=== PATIENT | female | born 2000 | race Caucasian/White ===

== ENCOUNTER 2024-12-01 23:17 | Emergency (ER) | payer BC, SELFPAY ==
[2024-12-01 23:33] VITALS: BP 142/88; O2SAT 99
[2024-12-01 23:40] VITALS: O2SAT 98
[2024-12-01 23:43] VITALS: BP 142/88; PULSE 86; TEMP 37; O2SAT 99; BMI 34.5
[2024-12-01 23:50] VITALS: O2SAT 98
--- NOTE | 2024-12-01 23:50 | PC.NURSE ---
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 after surgery of her left kidney the surgeon place her left kidney in the pelvic area near her bladder. this patient called her form maker at the [facility] , that person told her to go the er dept and have a ultra sound or ct of the new placement of her pelvic area
[2024-12-02] VITALS (26 sets, daily range): BP systolic 104–127; BP diastolic 62–87; PULSE 75; TEMP 37.1; O2SAT 95–100
--- NOTE | 2024-12-02 00:32 | ED.ABDPAIN1 ---
HPI - Abdominal Pain General Chief Complaint: Abdominal Pain Stated Complaint: POST TRANSPLANT COMPLICATIONS Time Seen by Provider: 12/01/24 23:23 Source: patient Mode of arrival: Wheelchair Limitations: no limitations History of Present Illness HPI narrative: This 24-year-old female who is status post transposition of the left kidney into her left lower quadrant and ureteral stent placement 5 weeks ago at [facility] presents for evaluation of left lower quadrant abdominal pain over the area where her kidney was relocated to. 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 The patient states she was having left flank pain for the past 20 years. She had this surgery 5 weeks ago at [facility]. A stent was placed postoperatively and was recently removed. She has followed up with her associate director of sales and is no longer on antibiotics. She states she started having pain in the left lower quadrant yesterday with nausea and vomiting. She has not had any diarrhea. She states her last bowel movement was 2 hours prior to coming to the emergency department. She has not had any fever. She has no flank pain at this time. She states she was doing fine until yesterday. She did reach out to the urologic surgeon who did her procedure and was told to go to a local hospital for an ultrasound of the kidney or CT scan. He is not currently on any pain medication or antibiotics. She states she has been urinating normally. Related Data Home Medications ?Medication ?Instructions ?Recorded ?Confirmed No Known Home Medications 12/01/24 12/01/24 Allergies Allergy/AdvReac Type Severity Reaction Status Date / Time No Known Drug Allergies Allergy Verified 12/01/24 23:42 Review of Systems ROS Status of ROS 10 or more systems reviewed and unremarkable except as noted in history and below PFSH PFSH Social History Little interest or pleasure in doing things: not at all Feeling down, depressed, or hopeless: not at all Exam Narrative Exam Narrative: Vital signs and Nursing Notes reviewed: Patient is afebrile with a normal pulse, blood pressure is elevated at 142/88, she has not hypoxic with pulse ox of 99% on room air General: Awake, alert, oriented, no acute distress, lying comfortably on the stretcher HEENT: Normocephalic atraumatic, mucous membranes are moist and pink, eyes are clear, normal conjunctiva, vision is grossly intact Chest: Lungs are clear to auscultation with good air entry, there is no wheezing rhonchi or rales appreciated no accessory muscle use, patient is speaking in complete sentences-no chest wall tenderness to palpation CVS: Regular rate and rhythm S1-S2, no murmurs rubs or gallops, pulses are brisk and equal bilaterally ABD: Soft, nondistended, healed periumbilical incision, mild tenderness in the left lower quadrant with voluntary guarding. Bowel sounds are normal. No right lower quadrant tenderness appreciated. Extremities: Moving all extremities, no lower extremity tenderness or swelling noted, negative Homans' sign, pulses are brisk and equal bilaterally Skin: Normal in appearance without rash,pallor, petechiae or purpura Neuro: No focal deficits Constitutional Vital Signs, click to edit/add: Last Vital Signs Temp 98.6 F 12/01/24 23:43 Pulse 86 12/01/24 23:43 Resp 18 12/01/24 23:43 BP 116/77 12/02/24 00:00 Pulse Ox 99 12/02/24 00:50 O2 Del Method Room Air 12/01/24 23:43 Course Vital Signs Vital signs: Vital Signs Blood Pressure 142/88 H 12/01/24 23:33 Pulse Oximetry 99 12/01/24 23:33 Temperature 98.6 F 12/01/24 23:43 Pulse Rate 86 12/01/24 23:43 Respiratory Rate 18 12/01/24 23:43 Blood Pressure 116/77 12/02/24 00:00 Pulse Oximetry 99 12/02/24 00:50 Oxygen Delivery Method Room Air 12/01/24 23:43 MDM - Abdominal Pain MDM Narrative Medical decision making narrative: This 24-year-old female who had a 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 She has not had any diarrhea. She has not had any fever. After the procedure she had a ureteral stent that was also recently removed. She denies any hematuria or urinary symptoms. She does not have any flank pain. She states she was feeling fine until yesterday when she started having pain in her left lower quadrant. She is well-appearing with stable vital signs. An IV was placed and she was medicated with IV fluids, Zofran and 4 mg of morphine. Routine labs were ordered and are reviewed. Her urine is negative for infection, protein or other abnormalities. She has a normal white count and stable hemoglobin. Electrolytes, liver function test and BUN and creatinine are normal. Lactic acid was normal at 0.9. He was told to come to the emergency department by the urologic surgeon who did her procedure for an ultrasound or CT scan of the kidney. Ultrasound is not available at this time and a CT scan with contrast was ordered. After the CT contrast had been administered by the occupational therapy technician the patient became nauseated and vomited. She was given additional dose of Zofran and the CT scan was completed. CT scan shows normal heart size with a small sized hiatal hernia, no acute process seen in the liver spleen gallbladder pancreas adrenal glands or kidneys. The left [place] kidney is situated in the left pelvis. There is normal perfusion to the kidneys with no focal perfusion abnormality identified. Constipation is noted affecting the right colon and proximal transverse colon segments. Patent abdominal aorta with no features of aneurysm or dissection. No retroperitoneal hemorrhage. No free fluid or free air. No abscess or hematoma. The results of the CT scan were shared with the patient and she was given a copy. She was also given a disc that shared with her urologist. She had recurrent pain while in the emergency department and was given a dose or Percocet which she had tolerated well hospitalized. She was given a copy of her labs and is going to call her surgeon later today to get a close follow-up appointment. I will give her a short course of pain medication to use until she can be seen in follow-up. At this time she is stable for discharge. OARRS was reviewed and she received 9 percocet post operatively She is on colace currently Lab Data Labs: Lab Results 12/02/24 12/02/24 Range/Units 00:45 00:50 WBC 8.4 (4.0-11.0) 10^3/uL RBC 4.59 (4.20-5.40) 10^6/uL Hgb 13.9 (12.0-16.0) g/dL Hct 40.2 (36.0-48.0) % MCV 87.6 (81.0-99.0) fL MCH 30.3 (26.7-34.0) pg MCHC 34.6 (29.9-35.2) g/dL RDW 11.9 (11.0-15.0) % Plt Count 193 (150-450) 10^3/uL MPV 10.0 (9.5-13.5) fL Neut % (Auto) 54.8 (43.0-75.0) % Lymph % (Auto) 32.5 (20.5-60.0) % [place] % (Auto) 9.6 (1.7-12.0) % Eos % (Auto) 2.3 (0.9-7.0) % Baso % (Auto) 0.4 (0.2-2.0) % Neut # (Auto) 4.6 (1.4-6.5) 10^3/uL Lymph # (Auto) 2.7 (1.2-3.8) 10^3/uL [place] # (Auto) 0.8 (0.3-0.8) 10^3/uL Eos # (Auto) 0.2 (0.0-0.7) 10^3/uL Baso # (Auto) 0.0 (0.0-0.1) 10^3/uL Abs Immat Gran (auto) 0.03 (0.00-0.03) 10^3/uL Imm/Tot Granulo (auto) 0.4 (0.0-0.5) % Sodium 139 (136-145) mmol/L Potassium 4.0 (3.5-5.1) mmol/L Chloride 103 (98-107) mmol/L Carbon Dioxide 29.3 (21.0-32.0) mmol/L Anion Gap 10.7 BUN 18.0 (7.0-18.0) mg/dL Creatinine 0.75 (0.55-1.02) mg/dL Est GFR ( Amer) >60 (>=60 mL/min/1.73m^2) Est GFR (Non-Af Amer) >60 (>=60 mL/min/1.73m^2) BUN/Creatinine Ratio 24.0 Glucose 82 (74-106) mg/dL Lactate 0.9 (0.4-2.0) mmol/L Calcium 9.8 (8.5-10.1) mg/dL Total Bilirubin 0.3 (0.2-1.0) mg/dL AST 17 (15-37) U/L ALT 35 (14-59) U/L Alkaline Phosphatase 121 H (46-116) U/L Total Protein 6.9 (6.4-8.2) g/dL Albumin 3.5 (3.4-5.0) g/dL Globulin 3.4 g/dL Albumin/Globulin Ratio 1.0 Urine Color Lt. yellow (YELLOW) Urine Clarity Clear (CLEAR) Urine pH 6.5 (5.0-9.0) Ur Specific [place] 1.010 (1.005-1.025) Urine Protein Negative (NEG/TRACE) mg/dL Urine Glucose (UA) Negative (NEGATIVE) mg/dL Urine Ketones Negative (NEGATIVE) mg/dL Urine Occult Blood Trace-i (NEGATIVE) Urine Nitrite Negative (NEGATIVE) Urine Bilirubin Negative (NEGATIVE) Urine Urobilinogen 0.2 (0.2-1.0) EU/dL Ur Leukocyte Esterase Negative (NEGATIVE) Urine RBC 0-2 (0-2) #/HPF Urine WBC 0-2 A (NONE SEEN) #/HPF Ur Squamous Epith Cells Moderate A (NONE/RARE) #/LPF Urine Crystals None seen (None Seen) #/HPF Urine Bacteria Trace A (NONE SEEN) #/HPF Urine Casts None seen (NONE SEEN) #/LPF Urine Mucus None seen (NONE SEEN) Ur Culture Indicated? No Urine HCG, Qual Negative (NEGATIVE) Discharge Plan Discharge Chief Complaint: Abdominal Pain Clinical Impression: Postoperative abdominal pain, Constipation Patient Disposition: Home, Self-Care Time of Disposition Decision: 04:17 Condition: Good Prescriptions / Home Meds: No Action No Known Home Medications Print Language: Andorran Instructions: Constipation (ED), Pain Management After Surgery (DC) Referrals: Physician,Non-Staff, MD [Primary Care Provider] - 1 week
[2024-12-02 00:58] LABS: Basophils Percent Auto 0.4 % (0.2-2.0); Eosinophils Absolute Auto 0.2 10^3/uL (0.0-0.7); Eosinophils Percent Auto 2.3 % (0.9-7.0); Hematocrit 40.2 % (36.0-48.0); Hemoglobin 13.9 g/dL (12.0-16.0); Immature Granulocytes Abs Auto 0.03 10^3/uL (0.00-0.03); Immature Granulocytes Pct Auto 0.4 % (0.0-0.5); Lymphocytes Absolute Auto 2.7 10^3/uL (1.2-3.8); Lymphocytes Percent Auto 32.5 % (20.5-60.0); Mean Corpuscular HGB Conc 34.6 g/dL (29.9-35.2); Mean Corpuscular Hemoglobin 30.3 pg (26.7-34.0); Mean Corpuscular Volume 87.6 fL (81.0-99.0); Monocytes Absolute Auto 0.8 10^3/uL (0.3-0.8); Monocytes Percent Auto 9.6 % (1.7-12.0); Neutrophils Absolute Auto 4.6 10^3/uL (1.4-6.5); Neutrophils Percent Auto 54.8 % (43.0-75.0); Platelet Count 193 10^3/uL (150-450); Red Blood Count 4.59 10^6/uL (4.20-5.40); Red Cell Distribution Width 11.9 % (11.0-15.0); White Blood Count 8.4 10^3/uL (4.0-11.0)
[2024-12-02 01:02] LABS: Bilirubin Urine NEGATIVE (NEGATIVE); Blood Urine TRACE-I (NEGATIVE); Clarity Urine CLEAR (CLEAR); Color Urine LT. YELLOW (YELLOW); Glucose Urine UA NEGATIVE (NEGATIVE); Ketones Urine NEGATIVE (NEGATIVE); Leukocyte Esterase Urine NEGATIVE (NEGATIVE); Nitrite Urine NEGATIVE (NEGATIVE); Protein Urine NEGATIVE (NEG/TRACE); Urobilinogen Urine 0.2 EU/dL (0.2-1.0); pH Urine 6.5 (5.0-9.0)
[2024-12-02] MEDS: ONDANSETRON PF 4 MG/2 ML VIAL IV ×2 (01:06→01:39)
[2024-12-02] MEDS: MORPHINE SULFATE 4 MG/ML VIAL IV (01:06)
[2024-12-02] MEDS: 0.9 % SODIUM CHLORIDE 500 ML IV (01:06)
[2024-12-02 01:07] LABS: HCG Qualitative Urine* NEGATIVE (NEGATIVE); Internal Control Within Normal Limits
[2024-12-02 01:12] LABS: Bacteria Urine TRACE #/HPF (NONE SEEN); Cast Seen? NONE SEEN #/LPF (NONE SEEN); Crystals Seen? None Seen #/HPF (None Seen); Mucus Urine NONE SEEN (NONE SEEN); RBC Urine 0-2 #/HPF (0-2); Squamous Epithelial Cell Urine MODERATE #/LPF (NONE/RARE); Urine Culture Indicated NO; WBC Urine 0-2 #/HPF (NONE SEEN)
[2024-12-02 01:14] LABS: Alanine Aminotransferase 35 U/L (14-59); Albumin Level 3.5 g/dL (3.4-5.0); Alkaline Phosphatase 121 U/L (46-116); Anion Gap 10.7; Aspartate Amino Transferase 17 U/L (15-37); Bilirubin Total 0.3 mg/dL (0.2-1.0); Calcium 9.8 mg/dL (8.5-10.1); Carbon Dioxide 29.3 mmol/L (21.0-32.0); Chloride 103 mmol/L (98-107); Estimated GFR (African America >60 (>=60 mL/min/1.73m^2); Estimated GFR (Non-African Ame >60 (>=60 mL/min/1.73m^2); Globulin 3.4 g/dL; Glucose 82 mg/dL (74-106); Sodium 139 mmol/L (136-145); Total Protein 6.9 g/dL (6.4-8.2)
[2024-12-02 01:17] LABS: Lactate/Lactic Acid 0.9 mmol/L (0.4-2.0)
[2024-12-02] MEDS: 0.9 % SODIUM CHLORIDE 1,000 ML 125 ML IV (02:34)
[2024-12-02] MEDS: OXYCODONE HCL/ACETAMINOPHEN 5MG/325MG 1 TAB PO (04:04)
--- NOTE | 2024-12-02 04:39 | PC.NURSE ---
i gave this patient verbal and written discharge orders along with 1 Rx, copies of lab results and CD of CT abdomen. this patient voices yes to understanding these. at time of discharge this patient voices no concerns or needs and this patient shows no signs of distress
== END 2024-12-02 04:37 | disposition home or self-care (01) ==
PROVIDERS: Emergency Provider Emergency Medicine
DX: R10.32 Left lower quadrant pain (principal); G89.18 Other acute postprocedural pain; Z98.890 Other specified postprocedural states; K44.9 Diaphragmatic hernia without obstruction or gangrene; K59.00 Constipation, unspecified
CPT/HCPCS: 36415; 74177; 80053; 81001; 83605; 84703; 85025; 96361; 96374; 96375; 96376; 99285; J2270; J2405; Q9967